=== PATIENT | male | born 1940 | race Caucasian/White ===

== ENCOUNTER 2018-12-31 22:54 | Emergency (ER) | payer OTHER ==
[~2018-12-31] VITALS: Ht 180.3 cm; Wt 145.0 kg
[2018-12-31 23:00] VITALS: Ht 180.3 cm; Wt 145.0 kg
[2019-01-01] MEDS ORDERED: HYDROCODONE/APAP (10/325) TAB PO ONE (03:30)
[2019-01-01 04:23] VITALS: BP 136/75; PULSE 81; RESP 16
--- NOTE | 2019-01-01 04:38 | ERD ---
ER Documentation Chief Complaint Chief Complaint CP worsening x 1mo, weakness x 5dys, unable to ambulate today. HPI This is a 78-year-old male with chest pain started about a week ago has been getting progressively worse. Denies fevers chills nausea vomiting. Denies shortness of breath. Pain is mild to moderate intensity with no exacerbating relieving factors but seems to progress on and off for the past 3 days. Patient with history of CHF. Denies palpitations. ROS All systems reviewed and are negative except as per history of present illness. Allergies Allergies: Coded Allergies: No Known Allergy (Unverified , 12/31/18) PMhx/Soc Anesthesia Reaction: No Hx Neurological Disorder: No Hx Respiratory Disorders: Yes (CHF) Hx Cardiac Disorders: Yes (HTN CHF ) Hx Psychiatric Problems: No Hx Alcohol Use: No Hx Substance Use: No Hx Tobacco Use: No Smoking Status: Never smoker Physical Exam Vitals Vital Signs Date Temp Pulse Resp B/P (MAP) Pulse Ox O2 O2 Flow FiO2 Time Delivery Rate 01/01/19 98.8 81 16 136/75 98 Nasal 2.0 04:23 (95) Cannula 01/01/19 86 16 126/62 96 Nasal 2.0 02:52 (83) Cannula 01/01/19 85 17 128/64 95 Room Air 01:47 (85) 01/01/19 85 13 143/66 95 Room Air 2.0 00:41 (91) Nasal Cannula 12/31/18 Nasal 3 23:49 Cannula 12/31/18 98.8 17 117/58 94 23:49 (77) 12/31/18 98.8 91 17 117/58 94 23:00 (77) Physical Exam Const: No acute distress Head: Atraumatic Eyes: Normal Conjunctiva ENT: Normal External Ears, Nose and Mouth. Neck: Full range of motion. No meningismus. Resp: Clear to auscultation bilaterally Cardio: Regular rate and rhythm, no murmurs Abd: Soft, non tender, non distended. Normal bowel sounds Skin: No petechiae or rashes Back: No midline or flank tenderness Ext: No cyanosis, or edema Neur: Awake and alert Psych: Normal Mood and Affect Result Diagram: 12/31/18 2330 12/31/18 2330 Results 24 hrs Laboratory Tests Test 12/31/18 23:30 White Blood Count 15.0 10^3/ul Red Blood Count 2.95 10^6/ul Hemoglobin 8.6 g/dl Hematocrit 27.6 % Mean Corpuscular Volume 93.6 fl Mean Corpuscular Hemoglobin 29.2 pg Mean Corpuscular Hemoglobin Concent 31.2 g/dl Red Cell Distribution Width 15.5 % Platelet Count 278 10^3/UL Mean Platelet Volume 10.1 fl Immature Granulocytes % 1.900 % Neutrophils % 74.3 % Lymphocytes % 8.9 % Monocytes % 13.6 % Eosinophils % 0.9 % Basophils % 0.4 % Nucleated Red Blood Cells % 0.0 /100WBC Immature Granulocytes # 0.290 10^3/ul Neutrophils # 11.2 10^3/ul Lymphocytes # 1.3 10^3/ul Monocytes # 2.0 10^3/ul Eosinophils # 0.1 10^3/ul Basophils # 0.1 10^3/ul Nucleated Red Blood Cells # 0.0 10^3/ul Sodium Level 142 mmol/L Potassium Level 3.9 mmol/L Chloride Level 108 mmol/L Carbon Dioxide Level 24 mmol/L Anion Gap 10 Blood Urea Nitrogen 45 mg/dl Creatinine 1.57 mg/dl Est Glomerular Filtrat Rate mL/min mL/min Glucose Level 130 mg/dl Calcium Level 10.0 mg/dl Total Bilirubin 0.3 mg/dl Direct Bilirubin 0.00 mg/dl Indirect Bilirubin 0.3 mg/dl Aspartate Amino Transf (AST/SGOT) 33 IU/L Alanine Aminotransferase (ALT/SGPT) 26 IU/L Alkaline Phosphatase 210 IU/L Troponin I 0.104 ng/ml B-Type Natriuretic Peptide 823 PG/ML Total Protein 7.5 g/dl Albumin 3.0 g/dl Globulin 4.50 g/dl Albumin/Globulin Ratio 0.66 Current Medications Medications Dose Sig/Kaci Start Time Status Last (Trade) Ordered Route PRN Stop Time Admin Dose Reason Admin 1 tab ONCE ONCE 01/01/19 DC 01/01/19 Acetaminophen PO 03:30 01/01/19 03:20 / 03:31 Hydrocodone Bitart ([place] ()) Procedures/MDM EKG: Rate/Rhythm: [Normal Sinus Rhythm] QRS, ST, T-waves: [No changes consistent w/ acute ischemia] Impression: [No evidence of ischemia or arrhythmia] Chest X-ray 1V Interpreted by me: Soft Tissue: No acute abno rmalities Bones: No acute abnormalities Mediastinum/Cardiac Silhouette/Lungs: [No acute abnormalities] Medical decision making: This is a very pleasant patient comes in with a an acute chest pain. Given his cardiac history feel he is to be admitted. Patient will be admitted to [facility]. Departure Diagnosis: Primary Impression: Chest pain Chest pain type: unspecified Qualified Codes: R07.9 - Chest pain, unspecified Condition: Serious PARVIZ MOTTA Jan 01, 2019 04:38
== END 2019-01-01 04:15 | disposition short-term general hospital (02) ==
LOC: E/R 22:54
DX: R07.9 Chest pain, unspecified (principal); I10 Essential (primary) hypertension; I50.9 Heart failure, unspecified; R40.2142 Coma scale, eyes open, spontaneous, at arrival to emergency department; R40.2252 Coma scale, best verbal response, oriented, at arrival to emergency department; R40.2352 Coma scale, best motor response, localizes pain, at arrival to emergency department
CPT/HCPCS: 36415; 71045; 80053; 83880; 84484; 85025; 93005